=== PATIENT | female | born 1965 | race Caucasian/White ===

== ENCOUNTER 2018-03-19 13:41 | Inpatient (IN) | payer BC, MEDICAID ==
[2018-03-19 14:16] LABS: ADD MAN DIFF? NO
[2018-03-19 14:23] LABS: BASOPHIL # 0.1 10^3/ul (0.0-0.1); BASOPHILS % 0.5 % (0.0-2.0); EOSINOPHILS # 1.5 10^3/ul (0.0-0.5); EOSINOPHILS % 11.5 % (0.0-7.0); HEMOGLOBIN 11.6 g/dl (12.0-16.0); LYMPHOCYTES # 2.1 10^3/ul (0.8-2.9); LYMPHOCYTES % 16.1 % (15.0-51.0); MEAN CORPUSCULAR HEMOGLOBIN 30.9 pg (29.0-33.0); MEAN CORPUSCULAR HGB CONC 33.1 g/dl (32.0-37.0); MEAN CORPUSCULAR VOLUME 93.3 fl (82.0-101.0); MEAN PLATELET VOLUME 10.1 fl (7.4-10.4); MONOCYTE # 1.2 10^3/ul (0.3-0.9); NEUTROPHILS % 62.5 % (39.0-77.0); PLATELET COUNT 291 10^3/UL (140-415); RED BLOOD COUNT 3.75 10^6/ul (4.20-5.40); RED CELL DISTRIBUTION WIDTH 13.5 % (11.5-14.5)
[2018-03-19 14:23] LABS: WHITE BLOOD COUNT 12.7 10^3/ul (4.8-10.8)
[2018-03-19] MEDS: ONDANSETRON 4 MG INJ IV (14:41)
[2018-03-19 14:42] LABS: ALANINE AMINOTRANSFERASE 27 IU/L (13-69); ALBUMIN 3.8 g/dl (3.3-4.9); ALKALINE PHOSPHATASE 104 IU/L (42-121); ANION GAP 13 (8-16); ASPARTATE AMINO TRANSFERASE 39 IU/L (15-46); BILIRUBIN,INDIRECT 0.3 mg/dl (0-1.1); BILIRUBIN,TOTAL 0.3 mg/dl (0.2-1.3); BLOOD UREA NITROGEN 15 mg/dl (7-20); CALCIUM 9.2 mg/dl (8.4-10.2); CARBON DIOXIDE 29 mmol/L (21-31); CHLORIDE 96 mmol/L (97-110); CREATININE 0.75 mg/dl (0.44-1.00); GLUCOSE 138 mg/dl (70-220); POTASSIUM 4.2 mmol/L (3.5-5.1); SODIUM 134 mmol/L (135-144); TOTAL PROTEIN 8.2 g/dl (6.1-8.1)
[2018-03-19] MEDS: HYDROmorphONE 1 MG/ML SYG IV (14:42)
[2018-03-19 14:43] LABS: ALBUMIN/GLOBULIN RATIO 0.86
[2018-03-19 14:54] LABS: B-TYPE NATRIURETIC PEPTIDE 367 PG/ML (0-125); TROPONIN-I < 0.010 ng/ml (0.000-0.120)
[2018-03-19 14:55] LABS: AADO2 Arterial 178.1 mmHg (7.0-24.0); Allen Test ACCEPTAB; Arterial Base Excess 5.1 mmol/L (-3.0-3); Arterial Blood Gas Oxygen Sat 99.3 mmHG (95.0-98.0); Arterial COHb 0.5 % (0.0-3.0); Arterial Fraction of Oxyhgb 98.4 % (93.0-99.0); Arterial HCO3 30.4 mmol/L (22.0-26.0); Arterial MetHb 0.4 % (0.0-1.5); Arterial Total Hemglobin 12.2 g/dl (12.0-18.0); Arterial pCO2 47.8 mmhg (35-45); Blood Gas IEPAP 15/5; INR 0.93; MODE MASK - BIPAP; PROTIME 12.6 Sec (11.9-14.9); Site Right Radial
[2018-03-19 14:56] LABS: PARTIAL THROMBOPLASTIN TIME 32.6 Sec (25.0-35.0)
[2018-03-19] MEDS: ALBUTEROL 0.5% (NEB) 2.5 MG/0.5 ML AMP INH (15:33)
[2018-03-19] MEDS: VANCOMYCIN 1 GM (PMX) 250 ML IVPB (16:41)
[2018-03-19] MEDS: CEFEPIME 1GM/50 ML (PMX) 50 ML IVPB (16:52)
[2018-03-19] MEDS: LORAZEPAM 2 MG INJ IV (16:52)
[2018-03-19] MEDS: SOD CHLORIDE 0.9% 1,000 ML IV ×2 (18:18→21:10)
[2018-03-19] MEDS: METHYLPREDNISOLONE 125 MG INJ IV (18:20)
[2018-03-19] MEDS: DIPHENHYDRAMINE 50 MG INJ IV (18:20)
[2018-03-19] MEDS ORDERED: ACETAMINOPHEN 325 MG TAB PO (18:30)
[2018-03-19] MEDS ORDERED: ONDANSETRON 4 MG INJ IV (18:30)
[2018-03-19] MEDS: HYDROmorphONE 0.5 MG/0.5 ML SYG IV (19:40)
[2018-03-19] MEDS ORDERED: NACL 0.9% 3 ML SYG IV (20:30)
[2018-03-19] MEDS ORDERED: ALBUTEROL/IPRATROPIUM (NEB) 3 ML AMP HHN (21:00)
[2018-03-19] MEDS: METHYLPREDNISOLONE 40 MG INJ IV (21:10)
[2018-03-19] MEDS: morphine 2 MG INJ IV (21:11)
[2018-03-19] MEDS: ALBUTEROL/IPRATROPIUM (NEB) 3 ML AMP HHN (21:21)
[2018-03-20] MEDS: ALBUTEROL/IPRATROPIUM (NEB) 3 ML AMP HHN ×6 (00:35→19:57)
[2018-03-20] MEDS: PANTOPRAZOLE 40 MG INJ IV (05:09)
[2018-03-20] MEDS: METHYLPREDNISOLONE 40 MG INJ IV ×3 (05:10→21:28)
[2018-03-20] MEDS: ONDANSETRON 4 MG INJ IV ×3 (05:35→22:02)
[2018-03-20 05:47] LABS: ADD MAN DIFF? NO
[2018-03-20 06:01] LABS: WHITE BLOOD COUNT 7.9 10^3/ul (4.8-10.8)
[2018-03-20 06:01] LABS: BASOPHILS % 0.1 % (0.0-2.0); HEMATOCRIT 35.8 % (37.0-47.0); HEMOGLOBIN 11.7 g/dl (12.0-16.0); LYMPHOCYTES # 1.2 10^3/ul (0.8-2.9); LYMPHOCYTES % 15.2 % (15.0-51.0); MEAN CORPUSCULAR HEMOGLOBIN 30.3 pg (29.0-33.0); MEAN CORPUSCULAR HGB CONC 32.7 g/dl (32.0-37.0); MEAN CORPUSCULAR VOLUME 92.7 fl (82.0-101.0); MEAN PLATELET VOLUME 10.3 fl (7.4-10.4); MONOCYTE # 0.1 10^3/ul (0.3-0.9); MONOCYTES % 0.6 % (0.0-11.0); NEUTROPHIL # 6.6 10^3/ul (1.6-7.5); NEUTROPHILS % 83.6 % (39.0-77.0); PLATELET COUNT 310 10^3/UL (140-415); RED BLOOD COUNT 3.86 10^6/ul (4.20-5.40); RED CELL DISTRIBUTION WIDTH 13.3 % (11.5-14.5)
[2018-03-20 06:58] LABS: ANION GAP 14 (8-16); BLOOD UREA NITROGEN 17 mg/dl (7-20); CALCIUM 9.7 mg/dl (8.4-10.2); CARBON DIOXIDE 29 mmol/L (21-31); CHLORIDE 101 mmol/L (97-110); CREATININE 0.73 mg/dl (0.44-1.00); GLUCOSE 132 mg/dl (70-220); PHOSPHORUS 5.9 mg/dl (2.5-4.9); POTASSIUM 4.9 mmol/L (3.5-5.1); SODIUM 139 mmol/L (135-144)
[2018-03-20] MEDS: morphine 2 MG INJ IV ×4 (08:07→21:28)
[2018-03-20 08:56] LABS: HEMOGLOBIN A1C 5.6 % (0-5.9)
[2018-03-20 11:27] LABS: AADO2 Arterial 86.3 mmHg (7.0-24.0); Allen Test ACCEPTAB; Arterial Base Excess 1.4 mmol/L (-3.0-3); Arterial Blood Gas Oxygen Sat 98.8 mmHG (95.0-98.0); Arterial COHb 0.3 % (0.0-3.0); Arterial Fraction of Oxyhgb 98.1 % (93.0-99.0); Arterial HCO3 26.5 mmol/L (22.0-26.0); Arterial MetHb 0.4 % (0.0-1.5); Arterial Total Hemglobin 12.1 g/dl (12.0-18.0); Blood Gas IEPAP 15/5; Blood Gas PS 10; MODE MASK - BIPAP; Site Right Radial
[2018-03-20] MEDS: CEFEPIME 1GM/50 ML (PMX) 50 ML IVPB (17:14)
[2018-03-21] MEDS: ALBUTEROL/IPRATROPIUM (NEB) 3 ML AMP HHN ×7 (01:07→23:53)
[2018-03-21] MEDS: morphine 2 MG INJ IV ×2 (01:23→05:20)
[2018-03-21] MEDS: LORAZEPAM 1 MG TAB PO ×2 (01:44→10:08)
[2018-03-21] MEDS: METHYLPREDNISOLONE 40 MG INJ IV ×3 (05:20→20:35)
[2018-03-21] MEDS: PANTOPRAZOLE 40 MG INJ IV (05:20)
[2018-03-21] MEDS: LEVOTHYROXINE 100 MCG TAB PO (08:57)
[2018-03-21 09:10] LABS: ADD MAN DIFF? NO
[2018-03-21 09:14] LABS: WHITE BLOOD COUNT 19.1 10^3/ul (4.8-10.8)
[2018-03-21 09:15] LABS: BASOPHILS % 0.1 % (0.0-2.0); HEMATOCRIT 33.5 % (37.0-47.0); HEMOGLOBIN 10.9 g/dl (12.0-16.0); LYMPHOCYTES # 1.4 10^3/ul (0.8-2.9); LYMPHOCYTES % 7.2 % (15.0-51.0); MEAN CORPUSCULAR HEMOGLOBIN 30.4 pg (29.0-33.0); MEAN CORPUSCULAR HGB CONC 32.5 g/dl (32.0-37.0); MEAN CORPUSCULAR VOLUME 93.3 fl (82.0-101.0); MONOCYTE # 0.4 10^3/ul (0.3-0.9); MONOCYTES % 1.8 % (0.0-11.0); NEUTROPHIL # 17.3 10^3/ul (1.6-7.5); NEUTROPHILS % 90.2 % (39.0-77.0); PLATELET COUNT 299 10^3/UL (140-415); RED BLOOD COUNT 3.59 10^6/ul (4.20-5.40); RED CELL DISTRIBUTION WIDTH 13.6 % (11.5-14.5)
[2018-03-21 09:37] LABS: ANION GAP 12 (8-16); BLOOD UREA NITROGEN 20 mg/dl (7-20); CALCIUM 9.6 mg/dl (8.4-10.2); CARBON DIOXIDE 27 mmol/L (21-31); CHLORIDE 106 mmol/L (97-110); CREATININE 0.73 mg/dl (0.44-1.00); GLUCOSE 138 mg/dl (70-220); POTASSIUM 4.3 mmol/L (3.5-5.1); SODIUM 141 mmol/L (135-144)
[2018-03-21 09:40] LABS: MAGNESIUM 2.2 mg/dl (1.7-2.5)
[2018-03-21 09:40] LABS: PHOSPHORUS 4.1 mg/dl (2.5-4.9)
[2018-03-21] MEDS: HYDROmorphONE 0.5 MG/0.5 ML SYG IV ×3 (11:32→20:35)
[2018-03-21] MEDS: CEFEPIME 1GM/50 ML (PMX) 50 ML IVPB (17:05)
[2018-03-21] MEDS: ZOLPIDEM 5 MG TAB PO (23:22)
[2018-03-22] MEDS: HYDROmorphONE 0.5 MG/0.5 ML SYG IV ×5 (01:14→18:02)
[2018-03-22] MEDS: METHYLPREDNISOLONE 40 MG INJ IV ×2 (05:14→15:37)
[2018-03-22] MEDS: PANTOPRAZOLE 40 MG INJ IV (05:14)
[2018-03-22] MEDS: ALBUTEROL/IPRATROPIUM (NEB) 3 ML AMP HHN ×4 (05:18→16:33)
[2018-03-22 05:55] LABS: ADD MAN DIFF? NO
[2018-03-22 06:08] LABS: BASOPHILS % 0.1 % (0.0-2.0); HEMATOCRIT 33.5 % (37.0-47.0); HEMOGLOBIN 10.9 g/dl (12.0-16.0); LYMPHOCYTES # 1.7 10^3/ul (0.8-2.9); LYMPHOCYTES % 9.4 % (15.0-51.0); MEAN CORPUSCULAR HEMOGLOBIN 30.1 pg (29.0-33.0); MEAN CORPUSCULAR HGB CONC 32.5 g/dl (32.0-37.0); MEAN CORPUSCULAR VOLUME 92.5 fl (82.0-101.0); MEAN PLATELET VOLUME 10.2 fl (7.4-10.4); MONOCYTE # 0.7 10^3/ul (0.3-0.9); MONOCYTES % 3.6 % (0.0-11.0); NEUTROPHIL # 15.9 10^3/ul (1.6-7.5); NEUTROPHILS % 86.4 % (39.0-77.0); PLATELET COUNT 312 10^3/UL (140-415); RED BLOOD COUNT 3.62 10^6/ul (4.20-5.40); RED CELL DISTRIBUTION WIDTH 13.8 % (11.5-14.5)
[2018-03-22 06:08] LABS: WHITE BLOOD COUNT 18.4 10^3/ul (4.8-10.8)
[2018-03-22 06:37] LABS: PHOSPHORUS 3.5 mg/dl (2.5-4.9)
[2018-03-22 06:37] LABS: MAGNESIUM 2.3 mg/dl (1.7-2.5)
[2018-03-22 06:44] LABS: ANION GAP 15 (8-16); BLOOD UREA NITROGEN 20 mg/dl (7-20); CALCIUM 9.4 mg/dl (8.4-10.2); CARBON DIOXIDE 27 mmol/L (21-31); CHLORIDE 103 mmol/L (97-110); CREATININE 0.67 mg/dl (0.44-1.00); GLUCOSE 116 mg/dl (70-220); POTASSIUM 4.3 mmol/L (3.5-5.1); SODIUM 141 mmol/L (135-144)
[2018-03-22] MEDS: LEVOTHYROXINE 100 MCG TAB PO (07:00)
[2018-03-22] MEDS: LORAZEPAM 1 MG TAB PO (10:47)
[2018-03-22] MEDS: CEFEPIME 1GM/50 ML (PMX) 50 ML IVPB (18:01)
== END 2018-03-22 18:59 | disposition home or self-care (01) | DRG 193 ==
LOC: E/R 13:41 → 6WM 18:21
PROC: 5A09457 Assistance with Respiratory Ventilation, 24-96 Consecutive Hours, Continuous Positive Airway Pressure (ICD-10-PCS; principal; 2018-03-19)
DX: J18.9 Pneumonia, unspecified organism (principal); J96.90 Respiratory failure, unspecified, unspecified whether with hypoxia or hypercapnia; C34.92 Malignant neoplasm of unspecified part of left bronchus or lung; C77.9 Secondary and unspecified malignant neoplasm of lymph node, unspecified; C34.91 Malignant neoplasm of unspecified part of right bronchus or lung; E03.9 Hypothyroidism, unspecified; F41.9 Anxiety disorder, unspecified; E78.5 Hyperlipidemia, unspecified; J40 Bronchitis, not specified as acute or chronic
CPT/HCPCS: 36415; 36600; 71045; 80048; 80053; 82803; 83036; 83735; 83880; 84100; 84484; 85025; 85610; 85730; 87040; 93005; 93306; 94640; 94644; 94660; 94664; 96374; 96375; 99285-25

== ENCOUNTER 2018-04-11 10:22 | Inpatient (IN) | payer BC ==
[2018-04-11] MEDS: morphine 4 MG/ML VIAL IV (10:52)
[2018-04-11] MEDS: ONDANSETRON 4 MG INJ IV ×3 (11:02→18:18)
[2018-04-11] MEDS: SOD CHLORIDE 0.9% 500 ML IV (11:11)
[2018-04-11] MEDS: HYDROmorphONE 1 MG/ML SYG IV ×2 (11:11→14:05)
[2018-04-11] MEDS: CEFEPIME 1GM/50 ML (PMX) 50 ML IVPB ×3 (11:11→19:07)
[2018-04-11 11:14] LABS: ADD MAN DIFF? NO
[2018-04-11] MEDS: ALBUTEROL 0.083% (NEB) 2.5 MG/3 ML AMP INH (11:14)
[2018-04-11 11:20] LABS: BASOPHILS % 0.3 % (0.0-2.0); EOSINOPHILS # 0.5 10^3/ul (0.0-0.5); EOSINOPHILS % 3.6 % (0.0-7.0); HEMATOCRIT 32.9 % (37.0-47.0); HEMOGLOBIN 10.7 g/dl (12.0-16.0); LYMPHOCYTES # 1.2 10^3/ul (0.8-2.9); MEAN CORPUSCULAR HEMOGLOBIN 30.2 pg (29.0-33.0); MEAN CORPUSCULAR HGB CONC 32.5 g/dl (32.0-37.0); MEAN CORPUSCULAR VOLUME 92.9 fl (82.0-101.0); MEAN PLATELET VOLUME 10.2 fl (7.4-10.4); MONOCYTE # 0.7 10^3/ul (0.3-0.9); MONOCYTES % 5.2 % (0.0-11.0); NEUTROPHIL # 11.2 10^3/ul (1.6-7.5); NEUTROPHILS % 81.4 % (39.0-77.0); PLATELET COUNT 240 10^3/UL (140-415); RED BLOOD COUNT 3.54 10^6/ul (4.20-5.40); RED CELL DISTRIBUTION WIDTH 14.9 % (11.5-14.5)
[2018-04-11 11:20] LABS: WHITE BLOOD COUNT 13.7 10^3/ul (4.8-10.8)
[2018-04-11 11:36] LABS: INR 0.98; PROTIME 13.1 Sec (11.9-14.9)
[2018-04-11 11:37] LABS: PARTIAL THROMBOPLASTIN TIME 32.6 Sec (25.0-35.0)
[2018-04-11 11:44] LABS: ALANINE AMINOTRANSFERASE 17 IU/L (13-69); ALBUMIN 3.4 g/dl (3.3-4.9); ALBUMIN/GLOBULIN RATIO 0.89; ALKALINE PHOSPHATASE 88 IU/L (42-121); ANION GAP 16 (8-16); ASPARTATE AMINO TRANSFERASE 35 IU/L (15-46); BILIRUBIN,INDIRECT 0.6 mg/dl (0-1.1); BILIRUBIN,TOTAL 0.6 mg/dl (0.2-1.3); BLOOD UREA NITROGEN 12 mg/dl (7-20); CARBON DIOXIDE 29 mmol/L (21-31); CHLORIDE 99 mmol/L (97-110); CREATININE 0.76 mg/dl (0.44-1.00); GLUCOSE 150 mg/dl (70-220); POTASSIUM 3.7 mmol/L (3.5-5.1); SODIUM 140 mmol/L (135-144); TOTAL PROTEIN 7.2 g/dl (6.1-8.1)
[2018-04-11 11:55] LABS: B-TYPE NATRIURETIC PEPTIDE 1470 PG/ML (0-125); TROPONIN-I < 0.012 ng/ml (0.000-0.120)
[2018-04-11] MEDS: LEVOFLOXACIN 500MG/D5W (PMX) 100 ML IV (12:03)
[2018-04-11] MEDS ORDERED: ONDANSETRON 4 MG INJ IV (13:30)
[2018-04-11] MEDS ORDERED: ACETAMINOPHEN 325 MG TAB PO (13:30)
[2018-04-11] MEDS: HYDROCODONE/APAP (5/325) TAB PO ×2 (15:18→19:33)
[2018-04-11] MEDS ORDERED: METHYLPREDNISOLONE 40 MG INJ IV (15:30)
[2018-04-11] MEDS ORDERED: NACL 0.9% 3 ML SYG IV (15:30)
[2018-04-11] MEDS: SODIUM CHLORIDE 0.9% 1L BAG IV (15:30)
[2018-04-11] MEDS: HYDROmorphONE 0.5 MG/0.5 ML SYG IV ×3 (16:44→22:32)
[2018-04-11] MEDS: ALBUTEROL/IPRATROPIUM (NEB) 3 ML AMP HHN ×3 (17:05→23:57)
[2018-04-11 17:49] LABS: AADO2 Arterial 74.7 mmHg (7.0-24.0); Allen Test ACCEPTAB; Arterial Base Excess 4.3 mmol/L (-3.0-3); Arterial Blood Gas Oxygen Sat 96.1 mmHG (95.0-98.0); Arterial COHb 0.8 % (0.0-3.0); Arterial Fraction of Oxyhgb 95.2 % (93.0-99.0); Arterial HCO3 29.5 mmol/L (22.0-26.0); Arterial MetHb 0.1 % (0.0-1.5); Arterial Total Hemglobin 10.8 g/dl (12.0-18.0); Arterial pCO2 47.1 mmhg (35-45); MODE NASAL CANNULA; Site Right Radial
[2018-04-11] MEDS: METHYLPREDNISOLONE 40 MG INJ IV ×2 (18:18→23:50)
[2018-04-11] MEDS: HYDROCODONE/APAP (10/325) TAB PO (18:18)
[2018-04-11] MEDS: FAMOTIDINE 20 MG INJ IV (21:11)
[2018-04-11] MEDS: LINEZOLID 600 MG/D5W (PMX) 300 ML IVPB (21:11)
[2018-04-11] MEDS: morphine (ER) 30 MG TAB PO (21:12)
[2018-04-12] MEDS: HYDROmorphONE 0.5 MG/0.5 ML SYG IV ×8 (01:46→21:50)
[2018-04-12] MEDS: ALBUTEROL/IPRATROPIUM (NEB) 3 ML AMP HHN ×5 (05:00→20:09)
[2018-04-12] MEDS: METHYLPREDNISOLONE 40 MG INJ IV ×4 (05:22→23:07)
[2018-04-12] MEDS: LEVOTHYROXINE 100 MCG TAB PO (06:14)
[2018-04-12 07:18] LABS: ALANINE AMINOTRANSFERASE 15 IU/L (13-69); ALBUMIN 3.6 g/dl (3.3-4.9); ALBUMIN/GLOBULIN RATIO 0.87; ALKALINE PHOSPHATASE 99 IU/L (42-121); ANION GAP 20 (8-16); ASPARTATE AMINO TRANSFERASE 44 IU/L (15-46); BILIRUBIN,INDIRECT 0.4 mg/dl (0-1.1); BILIRUBIN,TOTAL 0.4 mg/dl (0.2-1.3); BLOOD UREA NITROGEN 10 mg/dl (7-20); CALCIUM 9.5 mg/dl (8.4-10.2); CARBON DIOXIDE 27 mmol/L (21-31); CHLORIDE 100 mmol/L (97-110); CREATININE 0.65 mg/dl (0.44-1.00); GLUCOSE 156 mg/dl (70-220); MAGNESIUM 1.9 mg/dl (1.7-2.5); PHOSPHORUS 4.8 mg/dl (2.5-4.9); POTASSIUM 4.4 mmol/L (3.5-5.1); SODIUM 143 mmol/L (135-144); TOTAL PROTEIN 7.7 g/dl (6.1-8.1)
[2018-04-12] MEDS: LINEZOLID 600 MG/D5W (PMX) 300 ML IVPB ×2 (08:08→21:51)
[2018-04-12] MEDS: FAMOTIDINE 20 MG INJ IV ×2 (08:08→21:51)
[2018-04-12] MEDS: morphine (ER) 30 MG TAB PO ×2 (08:44→21:50)
[2018-04-12] MEDS: ENOXAPARIN 40 MG/0.4 ML SYG SC (08:48)
[2018-04-12] MEDS: CEFEPIME 1GM/50 ML (PMX) 50 ML IVPB (14:57)
[2018-04-12] MEDS: HYDROCODONE/APAP (10/325) TAB PO (14:57)
[2018-04-12] MEDS: LORAZEPAM 0.5 MG TAB PO (18:50)
[2018-04-12] MEDS: ONDANSETRON 4 MG INJ IV (22:36)
[2018-04-12] MEDS: ZOLPIDEM 5 MG TAB PO (23:07)
[2018-04-13] MEDS: ALBUTEROL/IPRATROPIUM (NEB) 3 ML AMP HHN ×6 (00:05→20:23)
[2018-04-13] MEDS: HYDROmorphONE 0.5 MG/0.5 ML SYG IV ×7 (00:53→22:58)
[2018-04-13] MEDS: CEFEPIME 1GM/50 ML (PMX) 50 ML IVPB ×2 (03:26→14:36)
[2018-04-13] MEDS: METHYLPREDNISOLONE 40 MG INJ IV ×4 (06:51→23:22)
[2018-04-13] MEDS: LEVOTHYROXINE 100 MCG TAB PO (06:52)
[2018-04-13] MEDS: FAMOTIDINE 20 MG INJ IV ×2 (08:44→20:01)
[2018-04-13] MEDS: LORAZEPAM 0.5 MG TAB PO ×2 (08:44→20:02)
[2018-04-13] MEDS: morphine (ER) 30 MG TAB PO ×2 (08:45→20:01)
[2018-04-13] MEDS: ENOXAPARIN 40 MG/0.4 ML SYG SC (08:46)
[2018-04-13] MEDS: LINEZOLID 600 MG/D5W (PMX) 300 ML IVPB ×2 (08:48→20:02)
[2018-04-13] MEDS: ONDANSETRON 4 MG INJ IV (09:09)
[2018-04-13 09:44] LABS: AADO2 Arterial 216.2 mmHg (7.0-24.0); Allen Test ACCEPTAB; Arterial Base Excess -0.2 mmol/L (-3.0-3); Arterial Blood Gas Oxygen Sat 96.7 mmHG (95.0-98.0); Arterial COHb 0.9 % (0.0-3.0); Arterial Fraction of Oxyhgb 95.5 % (93.0-99.0); Arterial HCO3 25.2 mmol/L (22.0-26.0); Arterial MetHb 0.3 % (0.0-1.5); Arterial Total Hemglobin 15.4 g/dl (12.0-18.0); Arterial pCO2 43.9 mmhg (35-45); MODE HFNC; Site Left Radial
[2018-04-13] MEDS: DOCUSATE SODIUM 100 MG CAP PO (12:28)
[2018-04-13 12:54] LABS: ADD MAN DIFF? NO
[2018-04-13 12:55] LABS: BASOPHILS % 0.1 % (0.0-2.0); HEMATOCRIT 28.4 % (37.0-47.0); HEMOGLOBIN 9.2 g/dl (12.0-16.0); LYMPHOCYTES # 0.9 10^3/ul (0.8-2.9); LYMPHOCYTES % 5.3 % (15.0-51.0); MEAN CORPUSCULAR HGB CONC 32.4 g/dl (32.0-37.0); MEAN CORPUSCULAR VOLUME 92.5 fl (82.0-101.0); MEAN PLATELET VOLUME 10.6 fl (7.4-10.4); MONOCYTE # 0.8 10^3/ul (0.3-0.9); MONOCYTES % 4.4 % (0.0-11.0); NEUTROPHIL # 15.9 10^3/ul (1.6-7.5); NEUTROPHILS % 89.6 % (39.0-77.0); PLATELET COUNT 270 10^3/UL (140-415); RED BLOOD COUNT 3.07 10^6/ul (4.20-5.40); RED CELL DISTRIBUTION WIDTH 15.4 % (11.5-14.5)
[2018-04-13 12:55] LABS: WHITE BLOOD COUNT 17.7 10^3/ul (4.8-10.8)
[2018-04-13 13:18] LABS: ANION GAP 15 (8-16); BLOOD UREA NITROGEN 17 mg/dl (7-20); CALCIUM 8.9 mg/dl (8.4-10.2); CARBON DIOXIDE 27 mmol/L (21-31); CHLORIDE 102 mmol/L (97-110); CREATININE 0.67 mg/dl (0.44-1.00); GLUCOSE 110 mg/dl (70-220); MAGNESIUM 2.1 mg/dl (1.7-2.5); PHOSPHORUS 3.2 mg/dl (2.5-4.9); POTASSIUM 4.1 mmol/L (3.5-5.1); SODIUM 140 mmol/L (135-144)
[2018-04-13] MEDS: BUPROPION 75 MG TAB PO ×2 (15:00→22:54)
[2018-04-13] MEDS: ZOLPIDEM 5 MG TAB PO (22:54)
[2018-04-14] MEDS: ALBUTEROL/IPRATROPIUM (NEB) 3 ML AMP HHN ×6 (01:53→20:07)
[2018-04-14] MEDS: HYDROmorphONE 0.5 MG/0.5 ML SYG IV ×6 (02:10→21:10)
[2018-04-14] MEDS: CEFEPIME 1GM/50 ML (PMX) 50 ML IVPB ×2 (02:10→15:24)
[2018-04-14] MEDS: LEVOTHYROXINE 100 MCG TAB PO (06:32)
[2018-04-14] MEDS: METHYLPREDNISOLONE 40 MG INJ IV ×3 (06:32→17:24)
[2018-04-14] MEDS: DOCUSATE SODIUM 100 MG CAP PO ×2 (06:32→21:03)
[2018-04-14 06:55] LABS: ADD MAN DIFF? NO
[2018-04-14 07:04] LABS: BASOPHILS % 0.1 % (0.0-2.0); HEMATOCRIT 31.2 % (37.0-47.0); LYMPHOCYTES # 1.2 10^3/ul (0.8-2.9); LYMPHOCYTES % 7.8 % (15.0-51.0); MEAN CORPUSCULAR HEMOGLOBIN 29.7 pg (29.0-33.0); MEAN CORPUSCULAR HGB CONC 32.1 g/dl (32.0-37.0); MEAN CORPUSCULAR VOLUME 92.6 fl (82.0-101.0); MEAN PLATELET VOLUME 10.2 fl (7.4-10.4); MONOCYTE # 0.4 10^3/ul (0.3-0.9); MONOCYTES % 2.7 % (0.0-11.0); NEUTROPHIL # 13.9 10^3/ul (1.6-7.5); NEUTROPHILS % 88.7 % (39.0-77.0); PLATELET COUNT 305 10^3/UL (140-415); RED BLOOD COUNT 3.37 10^6/ul (4.20-5.40); RED CELL DISTRIBUTION WIDTH 15.3 % (11.5-14.5)
[2018-04-14 07:04] LABS: WHITE BLOOD COUNT 15.6 10^3/ul (4.8-10.8)
[2018-04-14 07:30] LABS: ANION GAP 17 (8-16); BLOOD UREA NITROGEN 20 mg/dl (7-20); CALCIUM 9.3 mg/dl (8.4-10.2); CARBON DIOXIDE 30 mmol/L (21-31); CHLORIDE 102 mmol/L (97-110); CREATININE 0.74 mg/dl (0.44-1.00); GLUCOSE 119 mg/dl (70-220); POTASSIUM 4.2 mmol/L (3.5-5.1); SODIUM 145 mmol/L (135-144)
[2018-04-14] MEDS: BUPROPION 75 MG TAB PO ×2 (08:25→21:03)
[2018-04-14] MEDS: FAMOTIDINE 20 MG INJ IV ×2 (08:25→21:03)
[2018-04-14] MEDS: LORAZEPAM 0.5 MG TAB PO ×2 (08:25→21:03)
[2018-04-14] MEDS: morphine (ER) 30 MG TAB PO ×2 (08:25→21:02)
[2018-04-14] MEDS: LINEZOLID 600 MG/D5W (PMX) 300 ML IVPB ×2 (08:25→21:14)
[2018-04-14] MEDS: ENOXAPARIN 40 MG/0.4 ML SYG SC (08:35)
[2018-04-14] MEDS: ZOLPIDEM 5 MG TAB PO (21:23)
[2018-04-14] MEDS: HYDROCODONE/APAP (10/325) TAB PO (22:57)
[2018-04-15] MEDS: METHYLPREDNISOLONE 40 MG INJ IV ×4 (00:24→17:06)
[2018-04-15] MEDS: HYDROmorphONE 0.5 MG/0.5 ML SYG IV ×7 (00:24→21:26)
[2018-04-15] MEDS: ALBUTEROL/IPRATROPIUM (NEB) 3 ML AMP HHN ×6 (01:16→20:11)
[2018-04-15] MEDS: CEFEPIME 1GM/50 ML (PMX) 50 ML IVPB ×2 (03:51→13:59)
[2018-04-15] MEDS: HYDROCODONE/APAP (10/325) TAB PO (05:33)
[2018-04-15] MEDS: LEVOTHYROXINE 100 MCG TAB PO (06:28)
[2018-04-15] MEDS: FAMOTIDINE 20 MG INJ IV ×2 (07:36→20:22)
[2018-04-15] MEDS: BUPROPION 75 MG TAB PO ×2 (07:37→20:22)
[2018-04-15] MEDS: DOCUSATE SODIUM 100 MG CAP PO (07:37)
[2018-04-15] MEDS: LORAZEPAM 0.5 MG TAB PO ×2 (07:37→20:23)
[2018-04-15] MEDS: LINEZOLID 600 MG/D5W (PMX) 300 ML IVPB ×2 (07:37→20:22)
[2018-04-15] MEDS: morphine (ER) 30 MG TAB PO ×2 (07:37→20:23)
[2018-04-15] MEDS: ENOXAPARIN 40 MG/0.4 ML SYG SC (08:42)
[2018-04-15] MEDS: FLUCONAZOLE 100 MG TAB PO (12:12)
[2018-04-15] MEDS: GUAIFENESIN/CODEINE 5ML CUP PO (13:36)
[2018-04-15] MEDS: ONDANSETRON 4 MG INJ IV (17:06)
[2018-04-15] MEDS: ZOLPIDEM 5 MG TAB PO (22:22)
[2018-04-16] MEDS: HYDROmorphONE 0.5 MG/0.5 ML SYG IV ×8 (00:31→23:18)
[2018-04-16] MEDS: METHYLPREDNISOLONE 40 MG INJ IV ×5 (00:31→21:16)
[2018-04-16] MEDS: CEFEPIME 1GM/50 ML (PMX) 50 ML IVPB ×2 (03:18→15:05)
[2018-04-16] MEDS: ALBUTEROL/IPRATROPIUM (NEB) 3 ML AMP HHN ×6 (04:09→20:24)
[2018-04-16] MEDS: HYDROCODONE/APAP (10/325) TAB PO (05:18)
[2018-04-16 06:02] LABS: ADD MAN DIFF? NO
[2018-04-16 06:08] LABS: WHITE BLOOD COUNT 9.1 10^3/ul (4.8-10.8)
[2018-04-16 06:08] LABS: BASOPHILS % 0.1 % (0.0-2.0); HEMATOCRIT 30.8 % (37.0-47.0); HEMOGLOBIN 10.2 g/dl (12.0-16.0); LYMPHOCYTES # 0.8 10^3/ul (0.8-2.9); LYMPHOCYTES % 9.2 % (15.0-51.0); MEAN CORPUSCULAR HEMOGLOBIN 30.4 pg (29.0-33.0); MEAN CORPUSCULAR HGB CONC 33.1 g/dl (32.0-37.0); MEAN CORPUSCULAR VOLUME 91.7 fl (82.0-101.0); MEAN PLATELET VOLUME 9.9 fl (7.4-10.4); MONOCYTE # 0.4 10^3/ul (0.3-0.9); MONOCYTES % 3.9 % (0.0-11.0); NEUTROPHIL # 7.9 10^3/ul (1.6-7.5); NEUTROPHILS % 86.1 % (39.0-77.0); PLATELET COUNT 299 10^3/UL (140-415); RED BLOOD COUNT 3.36 10^6/ul (4.20-5.40)
[2018-04-16] MEDS: LEVOTHYROXINE 100 MCG TAB PO (06:29)
[2018-04-16 06:31] LABS: PHOSPHORUS 3.5 mg/dl (2.5-4.9)
[2018-04-16 06:31] LABS: MAGNESIUM 2.3 mg/dl (1.7-2.5)
[2018-04-16 06:38] LABS: ANION GAP 14 (8-16); BLOOD UREA NITROGEN 16 mg/dl (7-20); CALCIUM 8.9 mg/dl (8.4-10.2); CARBON DIOXIDE 33 mmol/L (21-31); CHLORIDE 98 mmol/L (97-110); CREATININE 0.74 mg/dl (0.44-1.00); GLUCOSE 125 mg/dl (70-220); POTASSIUM 4.5 mmol/L (3.5-5.1); SODIUM 140 mmol/L (135-144)
[2018-04-16] MEDS: BUPROPION 75 MG TAB PO ×2 (08:03→21:15)
[2018-04-16] MEDS: DOCUSATE SODIUM 100 MG CAP PO (08:03)
[2018-04-16] MEDS: morphine (ER) 30 MG TAB PO ×2 (08:03→21:15)
[2018-04-16] MEDS: FAMOTIDINE 20 MG INJ IV ×2 (08:04→21:16)
[2018-04-16] MEDS: LINEZOLID 600 MG/D5W (PMX) 300 ML IVPB (08:04)
[2018-04-16] MEDS: LORAZEPAM 0.5 MG TAB PO ×2 (08:04→21:15)
[2018-04-16] MEDS: FLUCONAZOLE 100 MG TAB PO (08:04)
[2018-04-16] MEDS: ENOXAPARIN 40 MG/0.4 ML SYG SC (08:42)
[2018-04-16] MEDS: HYDROCODONE/APAP (5/325) TAB PO (18:05)
[2018-04-16] MEDS: GUAIFENESIN/CODEINE 5ML CUP PO (18:10)
[2018-04-16] MEDS: ZOLPIDEM 5 MG TAB PO (23:18)
[2018-04-17] MEDS: ALBUTEROL/IPRATROPIUM (NEB) 3 ML AMP HHN ×6 (01:20→20:00)
[2018-04-17] MEDS: HYDROmorphONE 0.5 MG/0.5 ML SYG IV ×7 (02:06→22:00)
[2018-04-17] MEDS: CEFEPIME 1GM/50 ML (PMX) 50 ML IVPB ×2 (02:08→14:02)
[2018-04-17] MEDS: LEVOTHYROXINE 100 MCG TAB PO (05:17)
[2018-04-17] MEDS: METHYLPREDNISOLONE 40 MG INJ IV ×3 (05:17→20:34)
[2018-04-17] MEDS: LORAZEPAM 0.5 MG TAB PO ×2 (08:39→20:34)
[2018-04-17] MEDS: FAMOTIDINE 20 MG INJ IV ×2 (08:40→20:33)
[2018-04-17] MEDS: morphine (ER) 30 MG TAB PO ×2 (08:40→20:34)
[2018-04-17] MEDS: BUPROPION 75 MG TAB PO ×2 (08:40→20:34)
[2018-04-17] MEDS: FLUCONAZOLE 100 MG TAB PO (08:40)
[2018-04-17] MEDS: ENOXAPARIN 40 MG/0.4 ML SYG SC (08:48)
[2018-04-17] MEDS: HYDROCODONE/APAP (10/325) TAB PO (10:34)
[2018-04-17 10:50] LABS: AADO2 Arterial 65.8 mmHg (7.0-24.0); Allen Test ACCEPTAB; Arterial Blood Gas Oxygen Sat 98.5 mmHG (95.0-98.0); Arterial COHb 0.2 % (0.0-3.0); Arterial Fraction of Oxyhgb 98.1 % (93.0-99.0); Arterial HCO3 34.7 mmol/L (22.0-26.0); Arterial MetHb 0.2 % (0.0-1.5); Arterial Total Hemglobin 11.8 g/dl (12.0-18.0); Arterial pCO2 53.3 mmhg (35-45); MODE NASAL CANNULA; Site Right Radial
[2018-04-17] MEDS: ZOLPIDEM 5 MG TAB PO (23:22)
[2018-04-18] MEDS: ALBUTEROL/IPRATROPIUM (NEB) 3 ML AMP HHN ×6 (00:43→20:14)
[2018-04-18] MEDS: CEFEPIME 1GM/50 ML (PMX) 50 ML IVPB ×2 (02:25→14:33)
[2018-04-18] MEDS: LEVOTHYROXINE 100 MCG TAB PO (06:12)
[2018-04-18] MEDS: HYDROmorphONE 0.5 MG/0.5 ML SYG IV ×6 (06:50→22:18)
[2018-04-18] MEDS: morphine (ER) 30 MG TAB PO ×2 (09:00→21:30)
[2018-04-18] MEDS: FAMOTIDINE 20 MG INJ IV ×2 (09:00→21:29)
[2018-04-18] MEDS: FLUCONAZOLE 100 MG TAB PO (09:01)
[2018-04-18] MEDS: BUPROPION 75 MG TAB PO ×2 (09:01→21:30)
[2018-04-18] MEDS: LORAZEPAM 0.5 MG TAB PO ×2 (09:01→21:30)
[2018-04-18] MEDS: ONDANSETRON 4 MG INJ IV ×2 (09:01→16:07)
[2018-04-18] MEDS: METHYLPREDNISOLONE 40 MG INJ IV ×2 (09:01→21:29)
[2018-04-18] MEDS: ENOXAPARIN 40 MG/0.4 ML SYG SC (09:22)
[2018-04-18] MEDS: ZOLPIDEM 5 MG TAB PO (23:44)
[2018-04-19] MEDS: ALBUTEROL/IPRATROPIUM (NEB) 3 ML AMP HHN ×6 (01:33→20:56)
[2018-04-19] MEDS: CEFEPIME 1GM/50 ML (PMX) 50 ML IVPB ×2 (03:14→15:25)
[2018-04-19] MEDS: HYDROmorphONE 0.5 MG/0.5 ML SYG IV ×5 (05:24→22:34)
[2018-04-19] MEDS: LEVOTHYROXINE 100 MCG TAB PO (06:12)
[2018-04-19 06:56] LABS: ADD MAN DIFF? NO
[2018-04-19 07:03] LABS: BASOPHILS % 0.2 % (0.0-2.0); HEMATOCRIT 32.9 % (37.0-47.0); HEMOGLOBIN 10.6 g/dl (12.0-16.0); LYMPHOCYTES # 1.3 10^3/ul (0.8-2.9); LYMPHOCYTES % 10.8 % (15.0-51.0); MEAN CORPUSCULAR HEMOGLOBIN 29.7 pg (29.0-33.0); MEAN CORPUSCULAR HGB CONC 32.2 g/dl (32.0-37.0); MEAN CORPUSCULAR VOLUME 92.2 fl (82.0-101.0); MEAN PLATELET VOLUME 9.5 fl (7.4-10.4); MONOCYTE # 0.7 10^3/ul (0.3-0.9); MONOCYTES % 5.9 % (0.0-11.0); NEUTROPHIL # 9.8 10^3/ul (1.6-7.5); NEUTROPHILS % 79.4 % (39.0-77.0); PLATELET COUNT 286 10^3/UL (140-415); RED BLOOD COUNT 3.57 10^6/ul (4.20-5.40); RED CELL DISTRIBUTION WIDTH 15.3 % (11.5-14.5)
[2018-04-19 07:03] LABS: WHITE BLOOD COUNT 12.4 10^3/ul (4.8-10.8)
[2018-04-19 07:20] LABS: MAGNESIUM 2.3 mg/dl (1.7-2.5)
[2018-04-19 07:20] LABS: PHOSPHORUS 3.9 mg/dl (2.5-4.9)
[2018-04-19 07:22] LABS: ANION GAP 11 (8-16); BLOOD UREA NITROGEN 21 mg/dl (7-20); CALCIUM 8.8 mg/dl (8.4-10.2); CARBON DIOXIDE 34 mmol/L (21-31); CHLORIDE 95 mmol/L (97-110); CREATININE 0.64 mg/dl (0.44-1.00); GLUCOSE 115 mg/dl (70-220); POTASSIUM 5.2 mmol/L (3.5-5.1); SODIUM 135 mmol/L (135-144)
[2018-04-19] MEDS: METHYLPREDNISOLONE 40 MG INJ IV (08:12)
[2018-04-19] MEDS: FLUCONAZOLE 100 MG TAB PO (08:12)
[2018-04-19] MEDS: LORAZEPAM 0.5 MG TAB PO ×2 (08:12→20:42)
[2018-04-19] MEDS: morphine (ER) 30 MG TAB PO ×2 (08:12→20:42)
[2018-04-19] MEDS: BUPROPION 75 MG TAB PO ×2 (08:12→20:43)
[2018-04-19] MEDS: FAMOTIDINE 20 MG INJ IV (08:13)
[2018-04-19] MEDS: ENOXAPARIN 40 MG/0.4 ML SYG SC (08:19)
[2018-04-19] MEDS: DOCUSATE SODIUM 100 MG CAP PO (15:30)
[2018-04-19] MEDS: NA POLYST SULFON 15 GM/60 ML BTL PO (18:42)
[2018-04-19] MEDS: METHYLPREDNISOLONE 125 MG INJ IV (20:44)
[2018-04-19] MEDS: ZOLPIDEM 5 MG TAB PO (23:59)
[2018-04-20] MEDS: ACETYLCYSTEINE 20% 4 ML VIAL NEB ×4 (01:16→20:39)
[2018-04-20] MEDS: ALBUTEROL/IPRATROPIUM (NEB) 3 ML AMP HHN ×6 (01:16→20:59)
[2018-04-20] MEDS: HYDROmorphONE 0.5 MG/0.5 ML SYG IV ×6 (01:50→22:04)
[2018-04-20] MEDS: CEFEPIME 1GM/50 ML (PMX) 50 ML IVPB ×2 (05:11→15:05)
[2018-04-20] MEDS: LEVOTHYROXINE 100 MCG TAB PO (05:11)
[2018-04-20 07:16] LABS: ADD MAN DIFF? NO
[2018-04-20 07:21] LABS: WHITE BLOOD COUNT 13.2 10^3/ul (4.8-10.8)
[2018-04-20 07:21] LABS: ABNORMAL IP MESSAGE 1; BASOPHIL # 0.1 10^3/ul (0.0-0.1); BASOPHILS % 0.5 % (0.0-2.0); HEMATOCRIT 33.4 % (37.0-47.0); LYMPHOCYTES # 1.5 10^3/ul (0.8-2.9); LYMPHOCYTES % 11.3 % (15.0-51.0); MEAN CORPUSCULAR HEMOGLOBIN 30.6 pg (29.0-33.0); MEAN CORPUSCULAR HGB CONC 32.9 g/dl (32.0-37.0); MEAN CORPUSCULAR VOLUME 92.8 fl (82.0-101.0); MEAN PLATELET VOLUME 9.6 fl (7.4-10.4); MONOCYTE # 0.8 10^3/ul (0.3-0.9); MONOCYTES % 6.1 % (0.0-11.0); NEUTROPHIL # 10.1 10^3/ul (1.6-7.5); NEUTROPHILS % 76.6 % (39.0-77.0); PLATELET COUNT 281 10^3/UL (140-415); RED CELL DISTRIBUTION WIDTH 15.6 % (11.5-14.5)
[2018-04-20 07:32] LABS: POSITIVE DIFF @See below
[2018-04-20 07:56] LABS: ANION GAP 10 (8-16); BLOOD UREA NITROGEN 23 mg/dl (7-20); CALCIUM 8.8 mg/dl (8.4-10.2); CARBON DIOXIDE 36 mmol/L (21-31); CHLORIDE 94 mmol/L (97-110); CREATININE 0.68 mg/dl (0.44-1.00); GLUCOSE 144 mg/dl (70-220); POTASSIUM 4.3 mmol/L (3.5-5.1); SODIUM 136 mmol/L (135-144)
[2018-04-20] MEDS: morphine (ER) 30 MG TAB PO ×2 (08:37→20:56)
[2018-04-20] MEDS: BUPROPION 75 MG TAB PO ×2 (08:37→20:57)
[2018-04-20] MEDS: FAMOTIDINE 20 MG TAB PO (08:37)
[2018-04-20] MEDS: FLUCONAZOLE 100 MG TAB PO (08:37)
[2018-04-20] MEDS: METHYLPREDNISOLONE 125 MG INJ IV ×2 (08:38→20:57)
[2018-04-20] MEDS: LORAZEPAM 0.5 MG TAB PO ×2 (08:42→20:56)
[2018-04-20] MEDS: ENOXAPARIN 40 MG/0.4 ML SYG SC (08:56)
[2018-04-20] MEDS: HYDROCODONE/APAP (5/325) TAB PO (14:47)
[2018-04-20] MEDS: ONDANSETRON 4 MG INJ IV (18:18)
[2018-04-20] MEDS: HYDROCODONE/APAP (10/325) TAB PO (18:23)
[2018-04-20] MEDS: ZYVOX 600 MG TAB PO (20:57)
[2018-04-20] MEDS: ZOLPIDEM 5 MG TAB PO (23:13)
[2018-04-21] MEDS: ALBUTEROL/IPRATROPIUM (NEB) 3 ML AMP HHN ×6 (01:40→20:36)
[2018-04-21] MEDS: ACETYLCYSTEINE 20% 4 ML VIAL NEB ×4 (01:57→20:36)
[2018-04-21] MEDS: CEFEPIME 1GM/50 ML (PMX) 50 ML IVPB ×2 (02:56→15:44)
[2018-04-21] MEDS: HYDROmorphONE 0.5 MG/0.5 ML SYG IV ×4 (04:57→22:27)
[2018-04-21 06:10] LABS: ABNORMAL IP MESSAGE 1; HEMATOCRIT 32.5 % (37.0-47.0); HEMOGLOBIN 10.7 g/dl (12.0-16.0); MEAN CORPUSCULAR HEMOGLOBIN 30.4 pg (29.0-33.0); MEAN CORPUSCULAR HGB CONC 32.9 g/dl (32.0-37.0); MEAN CORPUSCULAR VOLUME 92.3 fl (82.0-101.0); MEAN PLATELET VOLUME 9.4 fl (7.4-10.4); PLATELET COUNT 257 10^3/UL (140-415); RED BLOOD COUNT 3.52 10^6/ul (4.20-5.40); RED CELL DISTRIBUTION WIDTH 15.7 % (11.5-14.5)
[2018-04-21 06:10] LABS: WHITE BLOOD COUNT 18.1 10^3/ul (4.8-10.8)
[2018-04-21 06:20] LABS: ADD MAN DIFF? YES; POSITIVE DIFF @See below
[2018-04-21] MEDS: LEVOTHYROXINE 100 MCG TAB PO (06:46)
[2018-04-21 06:54] LABS: ANION GAP 10 (8-16); BLOOD UREA NITROGEN 27 mg/dl (7-20); CALCIUM 8.6 mg/dl (8.4-10.2); CARBON DIOXIDE 36 mmol/L (21-31); CHLORIDE 95 mmol/L (97-110); CREATININE 0.67 mg/dl (0.44-1.00); GLUCOSE 115 mg/dl (70-220); POTASSIUM 4.7 mmol/L (3.5-5.1); SODIUM 136 mmol/L (135-144)
[2018-04-21] MEDS: METHYLPREDNISOLONE 125 MG INJ IV ×2 (08:25→21:03)
[2018-04-21] MEDS: morphine (ER) 30 MG TAB PO ×2 (08:28→21:03)
[2018-04-21] MEDS: BUPROPION 75 MG TAB PO ×2 (08:28→21:03)
[2018-04-21] MEDS: LORAZEPAM 0.5 MG TAB PO ×2 (08:29→21:03)
[2018-04-21] MEDS: FLUCONAZOLE 100 MG TAB PO (08:29)
[2018-04-21] MEDS: ZYVOX 600 MG TAB PO ×2 (08:29→21:03)
[2018-04-21] MEDS: FAMOTIDINE 20 MG TAB PO (08:29)
[2018-04-21] MEDS: ENOXAPARIN 40 MG/0.4 ML SYG SC (08:41)
[2018-04-21 09:26] LABS: ANISOCYTOSIS 1+ (0-0); BAND NEUTROPHILS #M 0.5 10^3/ul (0.0-0.6); BAND NEUTROPHILS % (M) 3 % (0-4); LYMPHOCYTES #M 1.4 10^3/ul (0.8-2.9); LYMPHOCYTES % (M) 8 % (15-51); METAMYELOCYTES #M 0.3 10^3/ul (0.0-0.0); METAMYELOCYTES %M 2 % (0-0); MONOCYTE #M 1.2 10^3/ul (0.3-0.9); MONOCYTES % (M) 7 % (0-11); PLATELET ESTIMATE NORMAL; POLYCHROMASIA 1+ (0-0); SEG NEUT #M 14.6 10^3/ul (1.6-7.5); SEGMENTED NEUTROPHILS (M) % 80 % (39-77); SMUDGE%M 7 % (0-0)
[2018-04-21] MEDS: HYDROCODONE/APAP (10/325) TAB PO (15:39)
[2018-04-21] MEDS: ZOLPIDEM 5 MG TAB PO (22:27)
[2018-04-22] MEDS: ALBUTEROL/IPRATROPIUM (NEB) 3 ML AMP HHN ×6 (01:23→21:41)
[2018-04-22] MEDS: ACETYLCYSTEINE 20% 4 ML VIAL NEB ×4 (01:23→21:27)
[2018-04-22] MEDS: HYDROmorphONE 0.5 MG/0.5 ML SYG IV ×6 (02:04→22:39)
[2018-04-22] MEDS: CEFEPIME 1GM/50 ML (PMX) 50 ML IVPB ×2 (02:54→15:12)
[2018-04-22] MEDS: LEVOTHYROXINE 100 MCG TAB PO (05:47)
[2018-04-22 05:52] LABS: ABNORMAL IP MESSAGE 1; HEMATOCRIT 31.2 % (37.0-47.0); HEMOGLOBIN 10.3 g/dl (12.0-16.0); MEAN CORPUSCULAR HEMOGLOBIN 30.1 pg (29.0-33.0); MEAN CORPUSCULAR VOLUME 91.2 fl (82.0-101.0); MEAN PLATELET VOLUME 9.5 fl (7.4-10.4); PLATELET COUNT 224 10^3/UL (140-415); RED BLOOD COUNT 3.42 10^6/ul (4.20-5.40); RED CELL DISTRIBUTION WIDTH 16.1 % (11.5-14.5)
[2018-04-22 05:52] LABS: WHITE BLOOD COUNT 18.1 10^3/ul (4.8-10.8)
[2018-04-22 06:01] LABS: ADD MAN DIFF? YES; POSITIVE DIFF @See below
[2018-04-22 06:20] LABS: ANION GAP 9 (8-16); BLOOD UREA NITROGEN 26 mg/dl (7-20); CALCIUM 8.7 mg/dl (8.4-10.2); CARBON DIOXIDE 32 mmol/L (21-31); CHLORIDE 97 mmol/L (97-110); CREATININE 0.62 mg/dl (0.44-1.00); GLUCOSE 135 mg/dl (70-220); POTASSIUM 4.4 mmol/L (3.5-5.1); SODIUM 134 mmol/L (135-144)
[2018-04-22] MEDS: morphine (ER) 30 MG TAB PO ×2 (08:47→20:50)
[2018-04-22] MEDS: FLUCONAZOLE 100 MG TAB PO (08:47)
[2018-04-22] MEDS: ZYVOX 600 MG TAB PO ×2 (08:47→20:50)
[2018-04-22] MEDS: LORAZEPAM 0.5 MG TAB PO ×2 (08:47→20:51)
[2018-04-22] MEDS: BUPROPION 75 MG TAB PO ×2 (08:47→20:51)
[2018-04-22] MEDS: FAMOTIDINE 20 MG TAB PO (08:47)
[2018-04-22] MEDS: METHYLPREDNISOLONE 125 MG INJ IV ×2 (08:48→20:52)
[2018-04-22] MEDS: ENOXAPARIN 40 MG/0.4 ML SYG SC (09:00)
[2018-04-22 09:25] LABS: ANISOCYTOSIS 1+ (0-0); BAND NEUTROPHILS #M 0.3 10^3/ul (0.0-0.6); BAND NEUTROPHILS % (M) 2 % (0-4); LYMPHOCYTES #M 0.9 10^3/ul (0.8-2.9); LYMPHOCYTES % (M) 5 % (15-51); MONOCYTE #M 0.7 10^3/ul (0.3-0.9); MONOCYTES % (M) 4 % (0-11); PLATELET ESTIMATE NORMAL; SEG NEUT #M 16.2 10^3/ul (1.6-7.5); SEGMENTED NEUTROPHILS (M) % 89 % (39-77); SMUDGE%M 6 % (0-0); TARGET CELLS 1+ (0-0)
[2018-04-22] MEDS: GUAIFENESIN/CODEINE 5ML CUP PO (11:32)
[2018-04-22] MEDS: ACETAMINOPHEN 325 MG TAB PO (11:34)
[2018-04-22] MEDS: ONDANSETRON 4 MG INJ IV (11:34)
[2018-04-22] MEDS: ZOLPIDEM 5 MG TAB PO (20:53)
[2018-04-22] MEDS: DOCUSATE SODIUM 100 MG CAP PO (20:59)
[2018-04-23] MEDS: HYDROmorphONE 0.5 MG/0.5 ML SYG IV ×6 (01:46→22:37)
[2018-04-23] MEDS: ALBUTEROL/IPRATROPIUM (NEB) 3 ML AMP HHN ×6 (02:05→20:01)
[2018-04-23] MEDS: ACETYLCYSTEINE 20% 4 ML VIAL NEB ×4 (02:16→20:01)
[2018-04-23] MEDS: CEFEPIME 1GM/50 ML (PMX) 50 ML IVPB (03:29)
[2018-04-23] MEDS: LEVOTHYROXINE 100 MCG TAB PO (06:05)
[2018-04-23 06:52] LABS: ADD MAN DIFF? NO
[2018-04-23 06:59] LABS: WHITE BLOOD COUNT 17.3 10^3/ul (4.8-10.8)
[2018-04-23 06:59] LABS: BASOPHIL # 0.1 10^3/ul (0.0-0.1); BASOPHILS % 0.4 % (0.0-2.0); HEMATOCRIT 32.6 % (37.0-47.0); HEMOGLOBIN 10.7 g/dl (12.0-16.0); LYMPHOCYTES # 1.6 10^3/ul (0.8-2.9); MEAN CORPUSCULAR HEMOGLOBIN 30.2 pg (29.0-33.0); MEAN CORPUSCULAR HGB CONC 32.8 g/dl (32.0-37.0); MEAN CORPUSCULAR VOLUME 92.1 fl (82.0-101.0); MEAN PLATELET VOLUME 9.5 fl (7.4-10.4); MONOCYTES % 5.7 % (0.0-11.0); NEUTROPHIL # 13.8 10^3/ul (1.6-7.5); NEUTROPHILS % 79.9 % (39.0-77.0); PLATELET COUNT 227 10^3/UL (140-415); RED BLOOD COUNT 3.54 10^6/ul (4.20-5.40); RED CELL DISTRIBUTION WIDTH 16.3 % (11.5-14.5)
[2018-04-23] MEDS: FAMOTIDINE 20 MG TAB PO (08:07)
[2018-04-23] MEDS: ZYVOX 600 MG TAB PO (08:09)
[2018-04-23] MEDS: BUPROPION 75 MG TAB PO ×2 (08:09→20:33)
[2018-04-23] MEDS: morphine (ER) 30 MG TAB PO ×2 (08:10→20:33)
[2018-04-23] MEDS: LORAZEPAM 0.5 MG TAB PO ×2 (08:10→20:34)
[2018-04-23] MEDS: METHYLPREDNISOLONE 125 MG INJ IV ×2 (08:11→20:34)
[2018-04-23] MEDS: FLUCONAZOLE 100 MG TAB PO (08:11)
[2018-04-23] MEDS: ENOXAPARIN 40 MG/0.4 ML SYG SC (08:17)
[2018-04-23 08:37] LABS: ANION GAP 11 (8-16); BLOOD UREA NITROGEN 21 mg/dl (7-20); CALCIUM 8.8 mg/dl (8.4-10.2); CARBON DIOXIDE 31 mmol/L (21-31); CHLORIDE 99 mmol/L (97-110); CREATININE 0.64 mg/dl (0.44-1.00); GLUCOSE 134 mg/dl (70-220); POTASSIUM 4.5 mmol/L (3.5-5.1); SODIUM 136 mmol/L (135-144)
[2018-04-23 08:47] LABS: MAGNESIUM 2.2 mg/dl (1.7-2.5)
[2018-04-23 08:47] LABS: PHOSPHORUS 4.2 mg/dl (2.5-4.9)
[2018-04-23] MEDS: FUROSEMIDE 40 MG INJ IV (15:00)
[2018-04-23] MEDS: ONDANSETRON 4 MG INJ IV (20:43)
[2018-04-23] MEDS ORDERED: MEROPENEM 1 GM/50ML(PMX) 50 ML IVPB (21:00)
[2018-04-23] MEDS: DOCUSATE SODIUM 100 MG CAP PO (22:43)
[2018-04-23] MEDS: GUAIFENESIN/CODEINE 5ML CUP PO (22:43)
[2018-04-24] MEDS: ALBUTEROL/IPRATROPIUM (NEB) 3 ML AMP HHN ×5 (02:19→17:09)
[2018-04-24] MEDS: ACETYLCYSTEINE 20% 4 ML VIAL NEB ×3 (02:19→17:10)
[2018-04-24] MEDS: HYDROmorphONE 0.5 MG/0.5 ML SYG IV ×3 (02:39→10:36)
[2018-04-24] MEDS: LEVOFLOXACIN 500 MG TAB PO (06:45)
[2018-04-24] MEDS: LEVOTHYROXINE 100 MCG TAB PO (06:45)
[2018-04-24 06:52] LABS: ADD MAN DIFF? NO
[2018-04-24 07:01] LABS: BASOPHILS % 0.2 % (0.0-2.0); HEMATOCRIT 33.4 % (37.0-47.0); LYMPHOCYTES # 1.5 10^3/ul (0.8-2.9); LYMPHOCYTES % 8.9 % (15.0-51.0); MEAN CORPUSCULAR HEMOGLOBIN 30.1 pg (29.0-33.0); MEAN CORPUSCULAR HGB CONC 32.9 g/dl (32.0-37.0); MEAN CORPUSCULAR VOLUME 91.3 fl (82.0-101.0); MEAN PLATELET VOLUME 9.4 fl (7.4-10.4); MONOCYTE # 0.7 10^3/ul (0.3-0.9); MONOCYTES % 4.3 % (0.0-11.0); NEUTROPHIL # 13.5 10^3/ul (1.6-7.5); NEUTROPHILS % 82.6 % (39.0-77.0); PLATELET COUNT 223 10^3/UL (140-415); RED BLOOD COUNT 3.66 10^6/ul (4.20-5.40); RED CELL DISTRIBUTION WIDTH 16.3 % (11.5-14.5)
[2018-04-24 07:01] LABS: WHITE BLOOD COUNT 16.4 10^3/ul (4.8-10.8)
[2018-04-24 07:40] LABS: ANION GAP 12 (8-16); BLOOD UREA NITROGEN 22 mg/dl (7-20); CALCIUM 8.9 mg/dl (8.4-10.2); CARBON DIOXIDE 34 mmol/L (21-31); CHLORIDE 94 mmol/L (97-110); CREATININE 0.78 mg/dl (0.44-1.00); GLUCOSE 106 mg/dl (70-220); POTASSIUM 4.6 mmol/L (3.5-5.1); SODIUM 135 mmol/L (135-144)
[2018-04-24 07:43] LABS: PHOSPHORUS 4.4 mg/dl (2.5-4.9)
[2018-04-24 07:43] LABS: MAGNESIUM 2.2 mg/dl (1.7-2.5)
[2018-04-24] MEDS: BUPROPION 75 MG TAB PO (08:21)
[2018-04-24] MEDS: LORAZEPAM 0.5 MG TAB PO (08:22)
[2018-04-24] MEDS: FLUCONAZOLE 100 MG TAB PO (08:22)
[2018-04-24] MEDS: FAMOTIDINE 20 MG TAB PO (08:22)
[2018-04-24] MEDS: morphine (ER) 30 MG TAB PO (08:23)
[2018-04-24] MEDS: METHYLPREDNISOLONE 125 MG INJ IV (08:24)
[2018-04-24] MEDS: FUROSEMIDE 40 MG INJ IV (08:24)
[2018-04-24] MEDS: ENOXAPARIN 40 MG/0.4 ML SYG SC (08:39)
[2018-04-24] MEDS: HYDROmorphONE 2 MG TAB PO ×2 (13:31→18:27)
== END 2018-04-24 18:48 | DRG 180 ==
LOC: E/R 10:22 → TEL 13:24
PROC: 5A09457 Assistance with Respiratory Ventilation, 24-96 Consecutive Hours, Continuous Positive Airway Pressure (ICD-10-PCS; principal; 2018-04-11)
DX: C34.90 Malignant neoplasm of unspecified part of unspecified bronchus or lung (principal); J96.21 Acute and chronic respiratory failure with hypoxia; B37.1 Pulmonary candidiasis; C77.9 Secondary and unspecified malignant neoplasm of lymph node, unspecified; E78.5 Hyperlipidemia, unspecified; E03.9 Hypothyroidism, unspecified; F41.9 Anxiety disorder, unspecified; G47.00 Insomnia, unspecified; M13.80 Other specified arthritis, unspecified site; F32.9 Major depressive disorder, single episode, unspecified; I50.9 Heart failure, unspecified
CPT/HCPCS: 36415; 36600; 71045; 80048; 80053; 82803; 83735; 83880; 84100; 84484; 85025; 85610; 85730; 87040; 87070; 87081; 93970; 94640; 94644; 94660; 94664; 96361; 96365; 96367; 96375; 97116; 97162; 97530; 99291-25